=== PATIENT | male | born 1975 | race Two or more races ===

== ENCOUNTER → 2023-12-03 | Emergency (ER) | payer MEDICAID ==
[~2023-12-03] VITALS: Ht 172.7 cm; Wt 122.5 kg
[~2023-12-03] MED LIST: IBUPROFEN 400 MG TABLET ONE
[2023-12-04] MEDS: IBUPROFEN 400 MG TABLET PO ONE (01:41)
[2023-12-04 02:20] VITALS: BP 134/76; TEMP 98.1; O2SAT 98
== END | disposition home or self-care (01) ==
LOC: ER 23:53
DX: S93.691A Other sprain of right foot, initial encounter (principal); W22.8XXA Striking against or struck by other objects, initial encounter; Y93.89 Activity, other specified; Y92.098 Other place in other non-institutional residence as the place of occurrence of the external cause; Y99.8 Other external cause status
CPT/HCPCS: 73630-TC